=== PATIENT | female | born 1955 | race Caucasian/White ===

== ENCOUNTER 2021-09-12 10:42 | Outpatient (CLI) | payer MEDICARE ==
[2021-09-12 11:58] LABS: Hemoglobin 13.8 g/dL (12.0-15.5); Mean Corpuscular HGB CONC 32.8 g/dL (32.0-36.0); Mean Corpuscular Hemoglobin 31.7 pg (27.0-33.0); Mean Corpuscular Volume 96.6 fl (81.6-98.3); Mean Platelet Volume 10.9 fl (7.4-10.4); Platelet Count 219 10x3/uL (150-450); RBC Distribution Width 13.5 % (11.5-14.5); Red Blood Cell (RBC) Count 4.36 10x6/uL (3.90-5.03); White Blood Cell (WBC) Count 5.2 10x3/uL (3.5-10.5)
[2021-09-12 12:09] LABS: Prothrombin Time 10.9 sec (9.5-12.1)
[2021-09-12 12:13] LABS: Anion Gap 13 mmol/L (10-20); BUN (Urea Nitrogen) 13 mg/dL (9.8-20.1); Calc. Creatinine Clearance 0 mL/min (70-130); Calcium 9.2 mg/dL (7.8-10.44); Carbon Dioxide 26 mmol/L (23-31); Chloride 104 mmol/L (98-107); Glucose 89 mg/dL (80-115); Potassium 4.5 mmol/L (3.5-5.1); Sodium 138 mmol/L (136-145)
[2021-09-12 20:21] LABS: SARS-CoV-2 PCR by NAA Not Detected (NotDetected)
== END 2021-09-12 10:43 | disposition home or self-care (01) ==
LOC: LABBT 10:42
PROVIDERS: ATTEND Internal Medicine Cardiovascular Disease
DX: Z01.812 Encounter for preprocedural laboratory examination (principal); I48.0 Paroxysmal atrial fibrillation; I48.4 Atypical atrial flutter; Z20.822 Contact with and (suspected) exposure to COVID-19
CPT/HCPCS: 80048; 85027; 85610; U0003; U0005

== ENCOUNTER 2021-09-15 08:22 | Day surgery (SDC) | payer MEDICARE ==
[2021-09-13 11:24] VITALS: BMI 29.2
[2021-09-15] MEDS ORDERED: Heparin 10,000 UNITS/ 10 ML VIAL ONE (09:07)
[2021-09-15] MEDS ORDERED: Heparin 25,000 units/D5W 500 ML ONE (09:07)
[2021-09-15] MEDS ORDERED: PHENYLEPHRINE-NS 100 MCG/ML 10 ML SYRINGE ONE (10:38)
[2021-09-15] MEDS ORDERED: PROPOFOL 200 MG/20 ML VIAL ONE (10:38)
[2021-09-15] MEDS ORDERED: Rocuronium Bromide 10 MG/ML (10ML VIAL) ONE (10:38)
[2021-09-15] MEDS ORDERED: GLYCOPYRROLATE/PF 0.2 MG/ML VIAL ONE (10:38)
[2021-09-15] MEDS ORDERED: Succinylcholine 200 MG/10 ml SYRINGE FS ONE (10:38)
[2021-09-15] MEDS ORDERED: Lidocaine 1% PF 5 ML VIAL ONE (10:38)
[2021-09-15] MEDS ORDERED: Dexamethasone 20 MG/5 ML VIAL ONE (10:38)
[2021-09-15] MEDS ORDERED: Ondansetron PF 4 MG/2 ML Vial ONE (10:38)
== END 2021-09-15 17:31 | disposition home or self-care (01) ==
LOC: SDC 08:22
PROVIDERS: ATTEND Internal Medicine Cardiovascular Disease
PROC: 4A023FZ Measurement of Cardiac Rhythm, Percutaneous Approach (ICD-10-PCS; principal; 2021-09-15)
PROC: 4A0234Z Measurement of Cardiac Electrical Activity, Percutaneous Approach (ICD-10-PCS; 2021-09-15)
PROC: 02583ZZ Destruction of Conduction Mechanism, Percutaneous Approach (ICD-10-PCS; 2021-09-15)
PROC: 02K83ZZ Map Conduction Mechanism, Percutaneous Approach (ICD-10-PCS; 2021-09-15)
DX: I48.19 Other persistent atrial fibrillation (principal); I48.4 Atypical atrial flutter; Z79.01 Long term (current) use of anticoagulants; Z79.899 Other long term (current) drug therapy
CPT/HCPCS: 85347 ×2; 93005; 93312; C1732; C1759; C1776; C1894; C2630; 93613; 93656; 93657; 93662; J1100; J1644; J2405; J2704; J3490

== ENCOUNTER 2021-09-17 22:41 | Emergency (ER) | payer MEDICARE ==
[2021-09-17 23:49] LABS: #Eosinphils 0.1 thou/uL (0.0-0.7); #Lymphocytes 1.8 thou/uL (1.20-3.40); #Monocytes 0.7 thou/uL (0.11-0.59); #Neutrophils 7.2 thou/uL (1.40-6.50); %Basophils 0.3 % (0.0-1.0); %Eosinophils 0.9 % (0.0-10.0); %Lymphocytes 18.3 % (21.0-51.0); %Monocytes 7.4 % (0.0-10.0); %Neutrophils 73.1 % (42.0-75.0); Hemoglobin 11.5 g/dL (12.0-16.0); Mean Corpuscular HGB CONC 33.6 g/dL (32.0-36.0); Mean Corpuscular Hemoglobin 34.2 pg (27.0-31.0); Platelet Count 159 thou/uL (130-400); RBC Distribution Width 12.5 % (11.5-14.5); Red Blood Cell (RBC) Count 3.37 mill/uL (4.20-5.40); White Blood Cell (WBC) Count 9.9 thou/uL (4.8-10.8)
[2021-09-18 00:01] LABS: INR-International Normal Ratio 1.1; PTT 42.6 sec (22.9-36.1)
[2021-09-18 00:03] LABS: ALT (SGPT) 25 U/L (8-55); AST (SGOT) 21 U/L (5-34); Alkaline Phosphatase 42 U/L (40-110); Anion Gap 13 mmol/L (10-20); BUN (Urea Nitrogen) 14 mg/dL (9.8-20.1); Bilirubin, Total 0.6 mg/dL (0.2-1.2); Calc. Creatinine Clearance 0 mL/min (70-130); Calcium 8.5 mg/dL (7.8-10.44); Carbon Dioxide 24 mmol/L (23-31); Chloride 106 mmol/L (98-107); Globulin 2.1 g/dL (2.4-3.5); Glucose 103 mg/dL (80-115); Protein, Total 6.1 g/dL (5.8-8.1); Sodium 139 mmol/L (136-145)
[2021-09-18] MEDS ORDERED: Furosemide 40 MG/4 ML VIAL ONE (00:03)
[2021-09-18 00:26] LABS: D-Dimer Test Greater than 20.00 *mcg/mL (0.27-0.43)
[2021-09-18 00:30] LABS: CKMB 0.8 ng/mL (0-6.6)
[2021-09-18] MEDS ORDERED: Aspirin 325 MG TAB ONE (00:50)
== END 2021-09-18 02:22 | disposition short-term general hospital (02) ==
LOC: ERS 22:41
DX: I50.9 Heart failure, unspecified (principal); R77.8 Other specified abnormalities of plasma proteins; Z79.899 Other long term (current) drug therapy; Z79.01 Long term (current) use of anticoagulants
CPT/HCPCS: 36415; 71045; 71275; 80053; 82553; 83880; 84484; 85025; 85379; 85610; 85730; 93005; 96374; J1940

== ENCOUNTER 2021-11-13 08:44 | Outpatient (CLI) | payer MEDICARE ==
[2021-11-13 10:11] LABS: Hemoglobin 13.9 g/dL (12.0-15.5); Mean Corpuscular HGB CONC 33.8 g/dL (32.0-36.0); Mean Corpuscular Hemoglobin 31.9 pg (27.0-33.0); Mean Corpuscular Volume 94.3 fl (81.6-98.3); Mean Platelet Volume 10.9 fl (7.4-10.4); Platelet Count 244 10x3/uL (150-450); RBC Distribution Width 12.6 % (11.5-14.5); Red Blood Cell (RBC) Count 4.36 10x6/uL (3.90-5.03); White Blood Cell (WBC) Count 5.4 10x3/uL (3.5-10.5)
[2021-11-13 10:18] LABS: Prothrombin Time 10.4 sec (9.5-12.1)
[2021-11-13 10:22] LABS: Anion Gap 15 mmol/L (10-20); BUN (Urea Nitrogen) 20 mg/dL (9.8-20.1); Calc. Creatinine Clearance 0 mL/min (70-130); Calcium 8.8 mg/dL (7.8-10.44); Carbon Dioxide 28 mmol/L (23-31); Chloride 100 mmol/L (98-107); Glucose 90 mg/dL (80-115); Potassium 4.1 mmol/L (3.5-5.1); Sodium 139 mmol/L (136-145)
[2021-11-13 16:10] LABS: SARS-CoV-2 PCR by NAA Not Detected (NotDetected)
== END 2021-11-13 08:45 | disposition home or self-care (01) ==
LOC: LABBT 08:44
PROVIDERS: ATTEND Internal Medicine Cardiovascular Disease
DX: Z01.812 Encounter for preprocedural laboratory examination (principal); Z20.822 Contact with and (suspected) exposure to COVID-19
CPT/HCPCS: 80048; 85027; 85610; U0003; U0005

== ENCOUNTER 2021-11-16 05:58 | Day surgery (SDC) | payer MEDICARE ==
[2021-11-13 14:18] VITALS: BMI 28.8
[2021-11-16] MEDS ORDERED: PROPOFOL 20 ML ONE (07:17)
== END 2021-11-16 09:15 | disposition home or self-care (01) ==
LOC: SDC 05:58
PROVIDERS: ATTEND Internal Medicine Cardiovascular Disease
PROC: 5A2204Z Restoration of Cardiac Rhythm, Single (ICD-10-PCS; principal; 2021-11-16)
DX: I48.4 Atypical atrial flutter (principal); I48.0 Paroxysmal atrial fibrillation; Z79.01 Long term (current) use of anticoagulants; Z79.899 Other long term (current) drug therapy; Z98.890 Other specified postprocedural states
CPT/HCPCS: 92960; 93005; 93010; J2704

== ENCOUNTER 2022-02-07 11:41 | Outpatient (CLI) | payer MEDICARE | END 2022-02-07 11:42 | disposition home or self-care (01) | LOC: BICMAMMO 11:41 | PROVIDERS: ATTEND Family Medicine | DX: Z12.31 Encounter for screening mammogram for malignant neoplasm of breast (principal) | CPT/HCPCS: 77063; 77067 ==

== ENCOUNTER 2025-05-24 14:36 | Outpatient (CLI) | payer MEDICARE | END 2025-05-24 14:37 | disposition home or self-care (01) | LOC: BICMAMMO 14:36 | PROVIDERS: ATTEND Obstetrics & Gynecology | DX: Z12.31 Encounter for screening mammogram for malignant neoplasm of breast (principal); Z78.0 Asymptomatic menopausal state; M85.852 Other specified disorders of bone density and structure, left thigh | CPT/HCPCS: 77063; 77067; 77080 ==